=== PATIENT | female | born 1960 | race Caucasian/White ===

== ENCOUNTER 2016-06-25 20:51 | Emergency (ER) | payer SELFPAY ==
[~2016-06-25] VITALS: Ht 160 cm; Wt 70.0 kg
[~2016-06-25 20:51] MED LIST: DOXE50CA PO; GABA600T2 PO; HYDR25TA6 PO; HYDROCHLOROTHIAZIDE; OXYC-302 PO; PALI6TAB3 PO; hydrocodone
[2016-06-25 21:02] VITALS: BP 130/78
== END 2016-06-25 21:35 | disposition left against medical advice (07) ==
LOC: ED 21:14
DX: R56.9 Unspecified convulsions (principal); J44.9 Chronic obstructive pulmonary disease, unspecified
CPT/HCPCS: 99281

== ENCOUNTER 2016-06-28 21:45 | Emergency (ER) | payer SELFPAY ==
[~2016-06-28] VITALS: Ht 160 cm; Wt 70.0 kg
[2016-06-28 21:48] VITALS: BP 130/87
[2016-06-28] MEDS ORDERED: OXYC-302 PO (22:14)
== END 2016-06-28 22:46 | disposition left against medical advice (07) ==
LOC: ED 22:40
DX: R56.9 Unspecified convulsions (principal); Z53.21 Procedure and treatment not carried out due to patient leaving prior to being seen by health care provider

== ENCOUNTER 2018-06-12 20:05 | Emergency (ER) | payer MEDICAID ==
[~2018-06-12] VITALS: Ht 162.6 cm; Wt 67.3 kg
[~2018-06-12 20:05] MED LIST changes: -GABA600T2 PO; +GABA600T7 PO
[2018-06-12 20:07] VITALS: BP 142/83
[2018-06-12] MEDS ORDERED: KETOROLAC 30 MG/1 ML ONE (20:53)
[2018-06-12] MEDS ORDERED: KETOROLAC 30 MG/1 ML IM ONE (21:00)
== END 2018-06-12 21:49 | disposition home or self-care (01) ==
LOC: ED 21:40
DX: G89.29 Other chronic pain (principal); M47.896 Other spondylosis, lumbar region; F17.210 Nicotine dependence, cigarettes, uncomplicated; J44.9 Chronic obstructive pulmonary disease, unspecified; I10 Essential (primary) hypertension; E78.5 Hyperlipidemia, unspecified; E03.9 Hypothyroidism, unspecified; N28.9 Disorder of kidney and ureter, unspecified
CPT/HCPCS: 72110; 96372; 99283; J1885

== ENCOUNTER 2019-10-22 23:44 | Inpatient (IN) | payer SELFPAY ==
[~2019-10-22] VITALS: Ht 152.4 cm; Wt 70.0 kg
[~2019-10-22 23:44] MED LIST changes: +ASPI-496 PO
[2019-10-23] MEDS ORDERED: NALOXONE 0.4 MG/ML, 1ML IVPush PRN
--- NOTE | 2019-10-23 00:02 | NUR ---
Pt to CT
--- NOTE | 2019-10-23 00:03 | NUR ---
REPORT GIVEN TO MUNA GARCIA
--- NOTE | 2019-10-23 00:04 | NUR ---
ELEONORA AND LABS SENT TO LAB. Addendum: 10/23/19 at 0004 by GARRET UA SENT TO LAB
--- NOTE | 2019-10-23 00:13 | NUR ---
Pt returned from CT. Pt with spontaneous respirations. Pt on full monitors. Pt on oxygen via nasal cannula.
--- NOTE | 2019-10-23 00:16 | NUR ---
Per pt boyfriend, pt has been having seizures for 1 month. Boyfriend reports her chest and head will feel hot and then he will wipe her with cool cloths. Boyfriend reports she hasn't seen a doctor for this and refuses to go. Boyfriend reports this is not the first time pt has attempted suicide. He reports that he found her in the closet at home after this attempt. He reports she will tell him that she feels like the "world is against her".
--- NOTE | 2019-10-23 00:18 | NUR ---
Lab at bedside for draw. r&d lab technician at bedside for EKG.
--- NOTE | 2019-10-23 00:20 | NUR ---
Pt did respond to painful stimuli - blood draw.
[2019-10-23 00:23] LABS: AMPHETAMINE SCREEN, URINE Negative (Negative); BARBITURATE SCREEN, URINE Negative (Negative); BENZODIAZEPINE SCREEN, URINE Negative (Negative); CANNABINOID SCREEN, URINE Positive (Negative); COCAINE SCREEN, URINE Negative (Negative); METHADONE SCREEN, URINE Negative (Negative); OPIATE SCREEN, URINE Positive (Negative)
[2019-10-23] MEDS ORDERED: LORazepam 2 MG/ML, 1ML ONE (00:31)
[2019-10-23 00:37] LABS: BASOPHILS # (AUTO) 0.02 x10^3/uL (0-0.1); BASOPHILS % (AUTO) 0 % (0-1); EOSINOPHILS # (AUTO) 0.07 x10^3/uL (0-0.4); EOSINOPHILS % (AUTO) 2 % (1-7); LYMPHOCYTES # (AUTO) 2.35 x10^3/uL (1-3.4); LYMPHOCYTES % (AUTO) 55 % (22-44); MD NO; MEAN CORPUSCULAR HEMOGLOBIN 32.5 pg (27.0-34.8); MEAN CORPUSCULAR HGB CONC 33.3 g/dL (32.4-35.8); MEAN CORPUSCULAR VOLUME 97.6 fL (80-100); MEAN PLATELET VOLUME 7.3 fL (7.4-10.4); MONOCYTES # (AUTO) 0.27 x10^3/uL (0.2-0.8); MONOCYTES % (AUTO) 6 % (2-9); NEUTROPHILS # (AUTO) 1.59 x10^3/uL (1.8-6.8); NEUTROPHILS % (AUTO) 37 % (42-75); PLATELET COUNT 188 x10^3/uL (130-400); RED BLOOD COUNT 4.01 x10^6/uL (3.82-5.3); RED CELL DISTRIBUTION WIDTH 15.2 % (9.6-15.2)
--- NOTE | 2019-10-23 00:40 | NUR ---
Pt noted to have two episodes of increased HR (to 180's) with yamel of her upper arms, and snoring noises. ERP at bedside. 1mg ativan given IVP with verbal from Dr. Adkins. Dr. Adkins remained at bedside for one full episode of seizure activity. Repeat EKG peformed. Pt remains on full monitors.
[2019-10-23 00:49] LABS: ALANINE AMINOTRANSFERASE 205 U/L (12-78); ALBUMIN 3.4 g/dL (3.4-5.0); ANION GAP 11 mmol/L (5-15); CALCIUM 8.3 mg/dL (8.5-10.1); CHLORIDE 111 mmol/L (98-107); CREATININE 0.97 mg/dL (0.55-1.02)
[2019-10-23 00:51] LABS: ALKALINE PHOSPHATASE 88 U/L (45-117); BILIRUBIN,TOTAL 0.3 mg/dL (0.2-1.0); TOTAL PROTEIN 6.8 g/dL (6.4-8.2)
[2019-10-23] MEDS ORDERED: LORazepam 2 MG/ML, 1ML IVPush ONE ×2 (01:00)
[2019-10-23] MEDS ORDERED: LEVETIRACETAM 1,000 MG in SODIUM CHLORIDE 0.9% 100 ML IV ONE (01:00)
[2019-10-23 01:02] LABS: MICROSCOPIC INDICATED
--- NOTE | 2019-10-23 01:26 | NUR ---
No futher seziure activity noted. Pt status remains unchanged. Boyfriend at bedside.
[2019-10-23] MEDS ORDERED: CIPROFLOXACIN/PMX 400MG/200ML 200 ML IV ONE (02:00)
[2019-10-23] MEDS ORDERED: CIPROFLOXACIN/PMX 400MG/200ML 200 ML ONE (02:05)
--- NOTE | 2019-10-23 02:07 | NUR ---
Call twice to reach boyfriend d/t broken phone - [phone]
--- NOTE | 2019-10-23 02:13 | NUR ---
Pt status remains unchanged. Antibiotics started. Pt boyfriend reports that pt might wake up "fiesty" and has been known to leave the hospital AMA.
--- NOTE | 2019-10-23 02:34 | NUR ---
TP RN: PER [facility], NO SITTERS AVAILABLE. PT WILL BE A HOLD UNTIL FURTHER NOTICE
--- NOTE | 2019-10-23 02:56 | NUR ---
Pt remains sleeping on gurney. Positive chest rise and fall noted. Oxygen titrated down to 3L. No change in pt status - no more seizure activity noted. Unable to obtain full med rec d/t pt status.
--- NOTE | 2019-10-23 03:20 | NUR ---
Report given to MUNA Light
[2019-10-23] MEDS ORDERED: POTASSIUM CHLORIDE 20 MEQ, MAGNESIUM SULFATE 2 GM, THIAMINE 200 MG, MVI ADULT 10 ML, FO... IV SCH (03:29)
[2019-10-23] MEDS: LEVETIRACETAM 1,000 MG in SODIUM CHLORIDE 0.9% 100 ML IV SCH ×2 (03:30→15:50)
[2019-10-23] MEDS ORDERED: DILTIAZEM 5 MG/ML, 5ML IVPush PRN (03:30)
[2019-10-23] MEDS ORDERED: LORazepam 2 MG/ML, 1ML IVPush PRN (03:30)
[2019-10-23] MEDS ORDERED: hydrALAzine 20 MG/ML, 1ML IVPush PRN (03:30)
[2019-10-23] MEDS ORDERED: ONDANSETRON 2MG/ML, 2ML IVPush PRN (03:30)
--- NOTE | 2019-10-23 03:46 | NUR ---
Pt transferred to floor with alternative energy technician via [facility]. Status unchanged.
[2019-10-23 03:49] VITALS: BP 123/86
[2019-10-23 07:11] VITALS: BP 108/71
[2019-10-23] MEDS ORDERED: LORazepam 2 MG/ML, 1ML IV PRN ×5 (12:00)
[2019-10-23] MEDS ORDERED: LORazepam 0.5MG TABLET PO PRN (12:00)
[2019-10-23] MEDS ORDERED: LORazepam 1MG TABLET PO PRN ×4 (12:00)
[2019-10-23 20:18] VITALS: BP 106/68
[2019-10-23] MEDS ORDERED: ZIPRASIDONE 20 MG INJ IM ONE ×2 (23:34)
[2019-10-24 02:34] VITALS: BP 103/66
[2019-10-24] MEDS: LEVETIRACETAM 1,000 MG in SODIUM CHLORIDE 0.9% 100 ML IV SCH (04:13)
[2019-10-24 06:41] LABS: BASOPHILS # (AUTO) 0.02 x10^3/uL (0-0.1); BASOPHILS % (AUTO) 0 % (0-1); EOSINOPHILS # (AUTO) 0.08 x10^3/uL (0-0.4); EOSINOPHILS % (AUTO) 2 % (1-7); LYMPHOCYTES # (AUTO) 2.03 x10^3/uL (1-3.4); LYMPHOCYTES % (AUTO) 41 % (22-44); MD NO; MEAN CORPUSCULAR HEMOGLOBIN 32.6 pg (27.0-34.8); MEAN CORPUSCULAR HGB CONC 33.2 g/dL (32.4-35.8); MEAN CORPUSCULAR VOLUME 98.1 fL (80-100); MEAN PLATELET VOLUME 7.4 fL (7.4-10.4); MONOCYTES # (AUTO) 0.34 x10^3/uL (0.2-0.8); MONOCYTES % (AUTO) 7 % (2-9); NEUTROPHILS # (AUTO) 2.48 x10^3/uL (1.8-6.8); NEUTROPHILS % (AUTO) 50 % (42-75); PLATELET COUNT 192 x10^3/uL (130-400); RED BLOOD COUNT 3.68 x10^6/uL (3.82-5.3); RED CELL DISTRIBUTION WIDTH 15.5 % (9.6-15.2)
[2019-10-24 07:18] LABS: ALANINE AMINOTRANSFERASE 158 U/L (12-78); ANION GAP 8 mmol/L (5-15); CALCIUM 8.2 mg/dL (8.5-10.1); CHLORIDE 113 mmol/L (98-107); CREATININE 0.78 mg/dL (0.55-1.02)
[2019-10-24 07:20] LABS: ALKALINE PHOSPHATASE 75 U/L (45-117); BILIRUBIN,TOTAL 0.6 mg/dL (0.2-1.0)
[2019-10-24 09:29] VITALS: BP 127/78
[2019-10-24] MEDS ORDERED: NICOTINE 21 MG/24 HR PATCH.TD24 TD SCH (09:30)
[2019-10-24] MEDS ORDERED: ZIPRASIDONE 20MG CAPSULE PO SCH (10:00)
[2019-10-24] MEDS ORDERED: CIPROFLOXACIN 500 MG TABLET PO SCH (10:00)
[2019-10-24] MEDS ORDERED: LEVE500T53 PO (15:44)
[2019-10-24] MEDS ORDERED: HYDR25CA PO (15:44)
[2019-10-24] MEDS ORDERED: LEVETIRACETAM 500 MG TABLET PO SCH (21:00)
[2019-10-31] MEDS ORDERED: CIPROFLOXACIN/PMX 400MG/200ML 200 ML IV SCH (02:00)
== END 2019-10-24 17:18 | disposition home or self-care (01) | DRG 689 ==
LOC: ED 10-23 02:34 → 4WST 10-23 03:14 → 3N 10-24 12:03
PROVIDERS: ADMIT Family Medicine; ATTEND Hospitalist
DX: N39.0 Urinary tract infection, site not specified (principal); G92 Toxic encephalopathy; R45.851 Suicidal ideations; F10.239 Alcohol dependence with withdrawal, unspecified; I10 Essential (primary) hypertension; J44.9 Chronic obstructive pulmonary disease, unspecified; I48.0 Paroxysmal atrial fibrillation; G40.909 Epilepsy, unspecified, not intractable, without status epilepticus; G31.2 Degeneration of nervous system due to alcohol; F43.21 Adjustment disorder with depressed mood; F41.9 Anxiety disorder, unspecified; F31.9 Bipolar disorder, unspecified; F29 Unspecified psychosis not due to a substance or known physiological condition; F12.10 Cannabis abuse, uncomplicated; F11.10 Opioid abuse, uncomplicated; Y90.8 Blood alcohol level of 240 mg/100 ml or more; Z88.6 Allergy status to analgesic agent; Z88.0 Allergy status to penicillin; E66.9 Obesity, unspecified; Z68.30 Body mass index [BMI] 30.0-30.9, adult; F10.229 Alcohol dependence with intoxication, unspecified; Z72.0 Tobacco use; Z91.14 Patient's other noncompliance with medication regimen; Z91.5 Personal history of self-harm
CPT/HCPCS: 36415; J7042; 70450; 71045; 80053; 80074; 80307; 81001; 82962; 83735; 84100; 84443; 85025; 87040; 87077; 87086; 87186; 93005; 93306; G0378; J0744; J1953; J3411; J3475; J3480; J3486; J2060